=== PATIENT | male | born 1955 | race Caucasian/White ===

== ENCOUNTER 2021-12-31 09:25 | Outpatient (CLI) | payer BC ==
--- NOTE | 2021-12-31 10:35 | XRay Report ---
LEFT ELBOW 3 VIEWS INDICATION: PAIN IN LEFT ELBOW M25.532. COMPARISON: None. IMPRESSION: A moderate anterior and posterior joint effusion is identified. There is normal bone mi neralization. No displaced fracture or significant degenerative changes are detected. This could ralph kenn an occult radial head fracture or osteochondral defect. If further evaluation is needed MRI left elbow without contrast should provide the most information. LEFT WRIST 3 VIEWS INDICATION: PAIN IN LEFT WRIST M25.532. COMPARISON: None. IMPRESSION: No acute osseous abnormality or joint pathology is detected. The soft tissues are unrem arkable. Signer Name: Derek Vail Jr, MD Signed: 12/31/2021 10:30 AM Workstation Name: [id number]
== END 2021-12-31 09:26 | disposition home or self-care (01) ==
LOC: XRAY 09:25
PROVIDERS: ATTEND Orthopaedic Surgery
DX: M25.432 Effusion, left wrist (principal); M79.602 Pain in left arm

== ENCOUNTER 2022-01-09 14:29 | Outpatient (CLI) | payer BC ==
[2022-01-09 15:04] LABS: Basophils % (Auto) 0.6 % (0.0-1.8); Eosinophils # (Auto) 0.1 K/mm3 (0.0-0.4); Eosinophils % (Auto) 1.3 % (0.0-4.3); Hematocrit 42.3 % (35.5-45.6); Hemoglobin 14.2 gm/dl (11.8-15.2); Lymphocytes # (Auto) 1.8 K/mm3 (1.2-5.4); Lymphocytes % (Auto) 28.3 % (13.4-35.0); Mean Corpuscular HGB Conc 34 % (32-34); Mean Corpuscular Volume 98 fl (84-94); Monocytes # (Auto) 0.4 K/mm3 (0.0-0.8); Monocytes % (Auto) 5.6 % (0.0-7.3); Platelet Count 211 K/mm3 (140-440); Red Blood Count 4.34 M/mm3 (3.65-5.03); Red Cell Distribution Width 13.6 % (13.2-15.2)
[2022-01-09 15:07] LABS: Bilirubin,Urine NEG (Negative); Blood,Urine NEG (Negative); Color,Urine Yellow (Yellow); Mucus,Urine FEW /HPF; Protein,Urine <15 mg/dL mg/dL (Negative); Urobilinogen,Urine < 2.0 mg/dL (<2.0)
[2022-01-09 15:43] LABS: Creatinine,Urine 195.8 mg/dL (0.1-20.0); Microalbumin/Creatinine Ratio 6.1 ug/mg
[2022-01-09 15:51] LABS: Alanine Aminotransferase 17 units/L (7-56); Albumin 4.5 g/dL (3.9-5); BUN/Creatinine Ratio 17; Blood Urea Nitrogen 19 mg/dL (9-20); Calcium 9.7 mg/dL (8.4-10.2); Chol/HDL Ratio 3.15 %; HDL Cholesterol 63 mg/dL (40-59); Hemolysis Index 22; LDL Cholesterol,Direct 130 mg/dL (50-130)
== END 2022-01-09 14:30 | disposition home or self-care (01) ==
LOC: LAB 14:29
PROVIDERS: ATTEND Internal Medicine
DX: Z13.220 Encounter for screening for lipoid disorders (principal); Z13.29 Encounter for screening for other suspected endocrine disorder; Z13.1 Encounter for screening for diabetes mellitus; N28.9 Disorder of kidney and ureter, unspecified; E13.29 Other specified diabetes mellitus with other diabetic kidney complication; E55.9 Vitamin D deficiency, unspecified
CPT/HCPCS: 36415; 80053; 80061; 81001; 82043; 83036; 84153; 84443; 85025

== ENCOUNTER 2022-06-03 08:45 | Outpatient (CLI) | payer BC ==
[2022-06-03 12:51] LABS: Chol/HDL Ratio 4.8 %
== END 2022-06-03 08:46 | disposition home or self-care (01) ==
LOC: LABHHL 08:45
PROVIDERS: ATTEND Internal Medicine
DX: E78.5 Hyperlipidemia, unspecified (principal)
CPT/HCPCS: 36415; 80061